=== PATIENT | female | born 1940 | race Caucasian/White ===

== ENCOUNTER 2023-04-23 09:42 | Inpatient (IN) | payer MEDICARE, OTHER ==
[~2023-04-23] VITALS: Ht 175.3 cm; Wt 75.7 kg
[2023-04-23] MEDS ORDERED: LOSA25TA27 PO (17:29)
[2023-04-23] MEDS ORDERED: CHOL200059 PO (17:29)
[2023-04-23] MEDS ORDERED: ARIP2TAB3 PO (17:29)
[2023-04-23] MEDS ORDERED: FURO-145 PO (17:29)
[2023-04-23] MEDS ORDERED: DOCU100C36 PO (17:29)
[2023-04-23] MEDS ORDERED: CALC-896 PO (17:29)
[2023-04-23] MEDS ORDERED: MULT-754 PO (17:29)
[2023-04-23] MEDS ORDERED: HAIR/SKIN/NAILS PO (17:29)
[2023-04-23] MEDS ORDERED: VENL75TA4 PO (17:29)
[2023-04-23] MEDS ORDERED: PRAV40TA3 PO (17:29)
[2023-04-23] MEDS ORDERED: APIX5TAB PO (17:29)
[2023-04-23] MEDS ORDERED: HYDR-3972 PO (17:29)
[2023-04-23] MEDS ORDERED: LEVO75TA PO (17:29)
[2023-04-23] MEDS ORDERED: METO50TA16 PO (17:29)
[2023-04-23] MEDS ORDERED: ZOLPIDEM TARTRATE 5 MG TABLET PO PRN (17:30)
[2023-04-23] MEDS ORDERED: HYDROMORPHONE 1 MG/1 ML DISP.SYRIN IV PRN (17:30)
[2023-04-23] MEDS ORDERED: Z GUARD REMEDY 4 OZ OINT TP PRN (17:30)
[2023-04-23] MEDS ORDERED: ONDANSETRON HCL/PF 4 MG/2 ML VIAL IVP PRN (17:30)
[2023-04-23] MEDS ORDERED: MAG HYDROX/AL HYDROX/SIMETH 30 ML UDC PO PRN (17:30)
[2023-04-23] MEDS: IV NS 0.9% 1,000 ML IV PRN (17:32)
[2023-04-23] MEDS ORDERED: HYDROCODONE/APAP 5/325MG TABLET PO PRN (18:00)
[2023-04-23] MEDS: ATORVASTATIN 10 MG TABLET PO SCH (18:13)
[2023-04-23] MEDS: LEVOTHYROXINE SODIUM 75 MCG TABLET PO SCH (18:14)
[2023-04-23] MEDS: ARIPIPRAZOLE 2 MG TABLET PO SCH (18:14)
[2023-04-23] MEDS: MULTIVITAMINS,THERAGRAN 1 UDTAB TABLET PO SCH (18:14)
[2023-04-23 20:00] VITALS: BP_SYST 129; BP_SYST 139; BP_DIAS 68; BP_DIAS 93; TEMP 97.7; O2SAT 95
[2023-04-24 07:24] LABS: APPEARANCE,URINE CLEAR (CLEAR); BILIRUBIN,URINE NEGATIVE (NEGATIVE); BLOOD, URINE NEGATIVE Ery/uL (NEGATIVE); COLOR,URINE YELLOW (YELLOW); KETONES,URINE NEGATIVE (NEGATIVE); LEUKOCYTE ESTERASE ,URINE TRACE (NEGATIVE); NITRITE, URINE POSITIVE (NEGATIVE); PH,URINE 6.5 (5.0-8.0); PROTEIN,URINE NEGATIVE (NEGATIVE); UGLUCOSE NEGATIVE (NEGATIVE); UROBILINOGEN,URINE 0.2 EU/dL (0.2)
[2023-04-24 07:30] LABS: BASOPHILS # (AUTO) 0.1 K/uL (0.0-0.2); BASOPHILS % (AUTO) 1.4 % (0.0-2.0); EOSINOPHILS # (AUTO) 0.5 K/uL (0.0-0.7); HEMATOCRIT 38 % (33-45); HEMOGLOBIN 12.6 g/dL (11.5-14.8); LYMPHOCYTES # (AUTO) 1.6 K/uL (0.8-4.8); LYMPHOCYTES % (AUTO) 29.5 % (20.0-44.0); MEAN CORPUSCULAR HEMOGLOBIN 31 PG (26.0-33.0); MEAN CORPUSCULAR HGB CONC 33 g/dl (31.0-36.0); MEAN CORPUSCULAR VOLUME 95 fL (82-100); MONOCYTES # (AUTO) 0.6 K/uL (0.1-1.30); MONOCYTES % (AUTO) 11.4 % (2.0-12.0); NEUTROPHILS # (AUTO) 2.6 K/uL (1.8-8.9); NEUTROPHILS % (AUTO) 48.7 % (43.0-81.0); PLATELET COUNT (AUTO) 205 K/uL (150-450); RED BLOOD CELL COUNT(AUTO) 4.05 MIL/uL (4.0-5.2); WHITE BLOOD COUNT (AUTO) 5.4 K/uL (4.3-11.0)
[2023-04-24 07:37] LABS: INR 0.97 (0.91-1.10); PARTIAL THROMBOPLASTIN TIME 29.7 SEC (24.3-34.3); PROTHROMBIN TIME 10.3 SECS (9.2-11.1)
[2023-04-24 07:49] LABS: CALCIUM, SERUM 8.7 mg/dL (8.5-10.1); CARBON DIOXIDE 27 mmol/L (21-32); CHLORIDE 104 mmol/L (98-107); CREATININE 0.7 mg/dL (0.6-1.3); GLUCOSE 89 mg/dL (74-106); MAGNESIUM 2.2 mg/dL (1.8-2.4); PHOSPHORUS 3.1 mg/dL (2.5-4.9); SODIUM SERUM 139 mmol/L (136-145); UREA NITROGEN, BLOOD 13 mg/dL (7-18)
[2023-04-24 08:00] VITALS: BP 149/77; TEMP 97.7; O2SAT 97
[2023-04-24 08:07] LABS: ADD URINE CULTURE YES; BACTERIA,URINE Many /HPF (None Seen); RBC,URINE NONE SEEN /HPF (0-2); SQUAMOUS EPITHELIAL CELL,UR Rare /HPF (None Seen)
[2023-04-24] MEDS: CALCIUM CITRATE(CITRACAL) /VITAMIN D 1 TAB TABLET PO SCH (09:00)
[2023-04-24] MEDS: VENLAFAXINE XR 150 MG CAP.SR.24H PO SCH (09:00)
[2023-04-24] MEDS: DOCUSATE SODIUM 100 MG CAPSULE PO SCH (09:00)
[2023-04-24] MEDS: LOSARTAN POTASSIUM 25 MG TABLET PO SCH (09:00)
[2023-04-24] MEDS: CHOLECALCIFEROL 1,000 UNIT TABLET (VIT D3) PO SCH (09:00)
[2023-04-24] MEDS: METOPROLOL TARTRATE 50 MG TABLET PO SCH (09:00)
[2023-04-24] MEDS ORDERED: POLYMYXIN B SULFATE 500,000 UNITS ONE (09:36)
[2023-04-24] MEDS ORDERED: LIDOCAINE 5% (PATCH) 1 EA PATCH TP ONE (09:37)
[2023-04-24] MEDS ORDERED: CELLULOSE,OXIDIZED 1 PKT EACH MC ONE (09:37)
[2023-04-24] MEDS ORDERED: ANESTHESIA TRAY IN PYXIS 1 EA TRAY MC ONE (09:37)
[2023-04-24] MEDS ORDERED: BUPIVACAINE 0.5 % PF 150 MG/30 ML VIAL ONE (09:37)
[2023-04-24] MEDS ORDERED: LIDOCAINE 1%-EPI 1:100,000 20 ML VIAL ONE (09:37)
[2023-04-24] MEDS ORDERED: CEFAZOLIN 1 GM ONE (09:37)
[2023-04-24] MEDS ORDERED: FENTANYL PF 100MCG/2ML AMPUL ONE ×2 (10:35→10:36)
[2023-04-24] MEDS ORDERED: METOPROLOL TARTRATE INJ 5 MG/5 ML AMPUL ONE (10:45)
[2023-04-24] MEDS ORDERED: KETOROLAC TROMETHAMINE INJ 30 MG/ML VIAL ONE (12:10)
[2023-04-24] MEDS ORDERED: HYDROMORPHONE 1 MG/1 ML DISP.SYRIN IV PRN (13:30)
[2023-04-24] MEDS: HYDROMORPHONE 1 MG/1 ML DISP.SYRIN IV PRN (14:20)
[2023-04-24 16:00] VITALS: BP 110/70; TEMP 97.9; O2SAT 94
[2023-04-24] MEDS: ANCEF 1 GM/50 ML D5W IV SCH (17:07)
[2023-04-24 20:00] VITALS: BP 115/78; TEMP 97.5; O2SAT 95
[2023-04-25 07:16] LABS: HEMATOCRIT 34 % (33-45); HEMOGLOBIN 11.1 g/dL (11.5-14.8); LYMPHOCYTES # (AUTO) 0.8 K/uL (0.8-4.8); LYMPHOCYTES % (AUTO) 6.6 % (20.0-44.0); MEAN CORPUSCULAR HEMOGLOBIN 31 PG (26.0-33.0); MEAN CORPUSCULAR HGB CONC 33 g/dl (31.0-36.0); MEAN CORPUSCULAR VOLUME 95 fL (82-100); MONOCYTES # (AUTO) 0.8 K/uL (0.1-1.30); MONOCYTES % (AUTO) 6.9 % (2.0-12.0); NEUTROPHILS # (AUTO) 10.4 K/uL (1.8-8.9); NEUTROPHILS % (AUTO) 86.5 % (43.0-81.0); PLATELET COUNT (AUTO) 221 K/uL (150-450); RED BLOOD CELL COUNT(AUTO) 3.56 MIL/uL (4.0-5.2); RED CELL DISTRIBUTION WIDTH 13.8 % (11.5-15.0)
[2023-04-25 07:23] LABS: CARBON DIOXIDE 23 mmol/L (21-32); CHLORIDE 107 mmol/L (98-107); CREATININE 0.8 mg/dL (0.6-1.3); GLUCOSE 129 mg/dL (74-106); POTASSIUM 4.3 mmol/L (3.5-5.1); SODIUM SERUM 139 mmol/L (136-145); UREA NITROGEN, BLOOD 19 mg/dL (7-18)
[2023-04-25 07:30] VITALS: BP 166/72; TEMP 97.7; O2SAT 96
[2023-04-25] MEDS ORDERED: CELLULOSE,OXIDIZED 1 EA PACK MC ONE (09:41)
[2023-04-25] MEDS ORDERED: BUPIVACAINE 0.5 % PF 150 MG/30 ML VIAL ONE (09:41)
[2023-04-25] MEDS ORDERED: IOHEXOL 240MG/ML 0 ML IV ONE (09:42)
[2023-04-25] MEDS ORDERED: GELATIN SPONGE,ABSORBABLE 1 EA SPONGE TP ONE (09:42)
[2023-04-25] MEDS ORDERED: LIDOCAINE 1%-EPI 1:100,000 20 ML VIAL ONE (09:43)
[2023-04-25] MEDS ORDERED: THROMBIN (BOVINE) 5,000 UNITS VIAL TP ONE ×3 (09:43→13:19)
[2023-04-25] MEDS ORDERED: CEFAZOLIN 1 GM ONE (09:44)
[2023-04-25] MEDS ORDERED: LIDOCAINE 5% (PATCH) 1 EA PATCH TP ONE ×2 (09:44→11:32)
[2023-04-25] MEDS ORDERED: HEMOSTATIC MATRIX 8 ML 1 EACH PAD MC ONE ×2 (09:45→13:22)
[2023-04-25] MEDS ORDERED: GELATIN SPONGE,ABSORBABLE 1 SPONGE SPONGE TP ONE ×3 (10:03→10:04)
[2023-04-25] MEDS ORDERED: dexaMETHasone SOD PHOSPHATE 1 ML ONE (10:20)
[2023-04-25] MEDS ORDERED: FENTANYL PF 250MCG/5ML AMPUL ONE (10:35)
[2023-04-25] MEDS ORDERED: POLYMYXIN B SULFATE 500,000 UNITS ONE (11:33)
[2023-04-25] MEDS ORDERED: HYDROMORPHONE 1 MG/1 ML DISP.SYRIN ONE (14:52)
[2023-04-25 15:09] LABS: EOSINOPHILS % (AUTO) 0.1 % (0.0-6.0); HEMATOCRIT 29 % (33-45); HEMOGLOBIN 9.1 g/dL (11.5-14.8); LYMPHOCYTES # (AUTO) 1.3 K/uL (0.8-4.8); LYMPHOCYTES % (AUTO) 10.6 % (20.0-44.0); MEAN CORPUSCULAR HEMOGLOBIN 31 PG (26.0-33.0); MEAN CORPUSCULAR HGB CONC 31 g/dl (31.0-36.0); MEAN CORPUSCULAR VOLUME 98 fL (82-100); MONOCYTES # (AUTO) 1.2 K/uL (0.1-1.30); MONOCYTES % (AUTO) 9.2 % (2.0-12.0); NEUTROPHILS % (AUTO) 80.1 % (43.0-81.0); PLATELET COUNT (AUTO) 213 K/uL (150-450); RED BLOOD CELL COUNT(AUTO) 2.96 MIL/uL (4.0-5.2); RED CELL DISTRIBUTION WIDTH 14.7 % (11.5-15.0); WHITE BLOOD COUNT (AUTO) 12.5 K/uL (4.3-11.0)
[2023-04-25 15:22] LABS: INR 1.02 (0.91-1.10); PROTHROMBIN TIME 10.8 SECS (9.2-11.1)
[2023-04-25] MEDS ORDERED: ONDANSETRON HCL/PF 4 MG/2 ML VIAL IV PRN (15:30)
[2023-04-25 15:40] LABS: ALANINE AMINOTRANSFERASE 20 U/L (12-78); ALBUMIN 2.5 g/dL (3.4-5.0); ALKALINE PHOSPHATASE 61 U/L (46-116); ASPARTATE AMINOTRANSFERASE 21 U/L (15-37); BILIRUBIN,TOTAL 0.2 mg/dL (0.2-1.0); CALCIUM, SERUM 8.1 mg/dL (8.5-10.1); CARBON DIOXIDE 19 mmol/L (21-32); CHLORIDE 110 mmol/L (98-107); CREATININE 0.7 mg/dL (0.6-1.3); GLUCOSE 135 mg/dL (74-106); POTASSIUM 3.7 mmol/L (3.5-5.1); SODIUM SERUM 140 mmol/L (136-145); TOTAL PROTEIN, SERUM 4.8 g/dL (6.4-8.2); UREA NITROGEN, BLOOD 16 mg/dL (7-18)
[2023-04-25 16:00] VITALS: BP_SYST 102; BP_SYST 126; BP_DIAS 53; BP_DIAS 80; TEMP 97.5; TEMP 98.2; O2SAT 95; O2SAT 99
[2023-04-25 16:09] LABS: PARTIAL THROMBOPLASTIN TIME 23.1 SEC (24.3-34.3)
[2023-04-25] MEDS: VANCOMYCIN 1 GM in IV D5W 250ml IV SCH (17:09)
[2023-04-25] MEDS: IV NS 0.9% 1,000 ML BAG IV ONE (17:23)
[2023-04-25] MEDS: PIPERACILLIN /TAZOBACTAM 3.375 G in IV D5W 100 ML IV SCH (18:27)
[2023-04-25 20:00] VITALS: BP 103/60; TEMP 97.9; O2SAT 95
[2023-04-25] MEDS: HYDROMORPHONE 1 MG/1 ML DISP.SYRIN IV PRN (21:29)
[2023-04-25] MEDS: METOCLOPRAMIDE HCL 10 MG/2 ML VIAL IV PRN (22:28)
[2023-04-26] VITALS (8 sets, daily range): BP systolic 98–123; BP diastolic 54–63; TEMP 98.1–98.9; O2SAT 92–96
[2023-04-26] MEDS: HYDROMORPHONE 1 MG/1 ML DISP.SYRIN IV PRN (00:26)
[2023-04-26] MEDS: IV NS 0.9% 1,000 ML IV PRN (00:34)
[2023-04-26 08:16] LABS: ALBUMIN 2.3 g/dL (3.4-5.0); BILIRUBIN,TOTAL 0.3 mg/dL (0.2-1.0); CALCIUM, SERUM 7.9 mg/dL (8.5-10.1); CREATININE 0.7 mg/dL (0.6-1.3); PHOSPHORUS 2.4 mg/dL (2.5-4.9); POTASSIUM 3.7 mmol/L (3.5-5.1); TOTAL PROTEIN, SERUM 4.5 g/dL (6.4-8.2)
[2023-04-26 09:41] LABS: BASOPHILS % (AUTO) 0.1 % (0.0-2.0); EOSINOPHILS % (AUTO) 0.4 % (0.0-6.0); HEMATOCRIT 21 % (33-45); LYMPHOCYTES # (AUTO) 1.3 K/uL (0.8-4.8); LYMPHOCYTES % (AUTO) 15.3 % (20.0-44.0); MEAN CORPUSCULAR HEMOGLOBIN 31 PG (26.0-33.0); MEAN CORPUSCULAR HGB CONC 33 g/dl (31.0-36.0); MEAN CORPUSCULAR VOLUME 96 fL (82-100); MONOCYTES # (AUTO) 1.1 K/uL (0.1-1.30); MONOCYTES % (AUTO) 13.4 % (2.0-12.0); NEUTROPHILS # (AUTO) 5.8 K/uL (1.8-8.9); NEUTROPHILS % (AUTO) 70.8 % (43.0-81.0); PLATELET COUNT (AUTO) 188 K/uL (150-450); RED BLOOD CELL COUNT(AUTO) 2.24 MIL/uL (4.0-5.2); RED CELL DISTRIBUTION WIDTH 14.4 % (11.5-15.0); WHITE BLOOD COUNT (AUTO) 8.2 K/uL (4.3-11.0)
[2023-04-26] MEDS: NEUTRA PHOS 1 POWD.PACKET PO ONE (16:05)
[2023-04-26 17:28] LABS: HEMOGLOBIN 7.9 g/dL (11.5-14.8)
[2023-04-26] MEDS: HYDROCODONE/APAP 10/325MG TABLET PO PRN (20:20)
[2023-04-26] MEDS: HYDROMORPHONE INJ 2 MG/ML DISP.SYRIN IV PRN (23:00)
[2023-04-27] VITALS (10 sets, daily range): BP systolic 102–131; BP diastolic 50–67; TEMP 98.4–99.1; O2SAT 99
[2023-04-27 07:32] LABS: BASOPHILS % (AUTO) 0.4 % (0.0-2.0); EOSINOPHILS # (AUTO) 0.1 K/uL (0.0-0.7); EOSINOPHILS % (AUTO) 1.4 % (0.0-6.0); HEMATOCRIT 27 % (33-45); HEMOGLOBIN 8.9 g/dL (11.5-14.8); LYMPHOCYTES # (AUTO) 1.3 K/uL (0.8-4.8); LYMPHOCYTES % (AUTO) 17.5 % (20.0-44.0); MEAN CORPUSCULAR HEMOGLOBIN 31 PG (26.0-33.0); MEAN CORPUSCULAR HGB CONC 33 g/dl (31.0-36.0); MEAN CORPUSCULAR VOLUME 95 fL (82-100); NEUTROPHILS # (AUTO) 4.8 K/uL (1.8-8.9); NEUTROPHILS % (AUTO) 66.7 % (43.0-81.0); PLATELET COUNT (AUTO) 145 K/uL (150-450); RED BLOOD CELL COUNT(AUTO) 2.83 MIL/uL (4.0-5.2); RED CELL DISTRIBUTION WIDTH 14.5 % (11.5-15.0); WHITE BLOOD COUNT (AUTO) 7.2 K/uL (4.3-11.0)
[2023-04-27 08:32] LABS: ALANINE AMINOTRANSFERASE 21 U/L (12-78); ALBUMIN 2.2 g/dL (3.4-5.0); ALKALINE PHOSPHATASE 58 U/L (46-116); ASPARTATE AMINOTRANSFERASE 22 U/L (15-37); CALCIUM, SERUM 8.2 mg/dL (8.5-10.1); CARBON DIOXIDE 24 mmol/L (21-32); CHLORIDE 103 mmol/L (98-107); CREATININE 0.5 mg/dL (0.6-1.3); GLUCOSE 129 mg/dL (74-106); MAGNESIUM 2.1 mg/dL (1.8-2.4); PHOSPHORUS 2.1 mg/dL (2.5-4.9); POTASSIUM 3.5 mmol/L (3.5-5.1); SODIUM SERUM 134 mmol/L (136-145); TOTAL PROTEIN, SERUM 4.9 g/dL (6.4-8.2); UREA NITROGEN, BLOOD 8 mg/dL (7-18)
[2023-04-27] MEDS: APIXABAN 5 MG TABLET PO SCH (09:34)
[2023-04-27] MEDS: NEUTRA PHOS 1 POWD.PACKET PO ONE (17:08)
[2023-04-28] VITALS (9 sets, daily range): BP systolic 105–147; BP diastolic 49–64; TEMP 98.4–99.7; O2SAT 95–98
[2023-04-28] MEDS: oxyCODONE/APAP (5/325 MG) 1 UDTAB TABLET PO PRN (01:14)
[2023-04-28] MEDS: LIDOCAINE 5% (PATCH) 1 EA PATCH TP SCH (10:05)
[2023-04-28 10:18] LABS: CALCIUM, SERUM 7.9 mg/dL (8.5-10.1); CREATININE 0.6 mg/dL (0.6-1.3); POTASSIUM 3.3 mmol/L (3.5-5.1)
[2023-04-28 10:55] LABS: BASOPHILS % (AUTO) 0.2 % (0.0-2.0); EOSINOPHILS # (AUTO) 0.2 K/uL (0.0-0.7); EOSINOPHILS % (AUTO) 2.7 % (0.0-6.0); HEMATOCRIT 25 % (33-45); HEMOGLOBIN 8.1 g/dL (11.5-14.8); LYMPHOCYTES # (AUTO) 1.1 K/uL (0.8-4.8); LYMPHOCYTES % (AUTO) 13.8 % (20.0-44.0); MEAN CORPUSCULAR HEMOGLOBIN 31 PG (26.0-33.0); MEAN CORPUSCULAR HGB CONC 33 g/dl (31.0-36.0); MEAN CORPUSCULAR VOLUME 95 fL (82-100); MONOCYTES # (AUTO) 0.9 K/uL (0.1-1.30); MONOCYTES % (AUTO) 11.4 % (2.0-12.0); NEUTROPHILS # (AUTO) 5.8 K/uL (1.8-8.9); NEUTROPHILS % (AUTO) 71.9 % (43.0-81.0); PLATELET COUNT (AUTO) 158 K/uL (150-450); RED CELL DISTRIBUTION WIDTH 14.1 % (11.5-15.0); WHITE BLOOD COUNT (AUTO) 8.1 K/uL (4.3-11.0)
[2023-04-28] MEDS: POTASSIUM CHLORIDE 20 MEQ TAB.PRT.SR PO ONE (12:17)
[2023-04-29 05:21] VITALS: O2SAT 98
[2023-04-29] MEDS: MAGNESIUM HYDROXIDE 30 ML UDC PO PRN (05:31)
[2023-04-29 06:29] LABS: BASOPHILS % (AUTO) 0.5 % (0.0-2.0); EOSINOPHILS # (AUTO) 0.2 K/uL (0.0-0.7); EOSINOPHILS % (AUTO) 2.9 % (0.0-6.0); HEMATOCRIT 28 % (33-45); HEMOGLOBIN 9.4 g/dL (11.5-14.8); LYMPHOCYTES # (AUTO) 0.9 K/uL (0.8-4.8); LYMPHOCYTES % (AUTO) 11.4 % (20.0-44.0); MEAN CORPUSCULAR HEMOGLOBIN 31 PG (26.0-33.0); MEAN CORPUSCULAR HGB CONC 34 g/dl (31.0-36.0); MEAN CORPUSCULAR VOLUME 93 fL (82-100); MONOCYTES % (AUTO) 12.5 % (2.0-12.0); NEUTROPHILS # (AUTO) 5.9 K/uL (1.8-8.9); NEUTROPHILS % (AUTO) 72.7 % (43.0-81.0); PLATELET COUNT (AUTO) 192 K/uL (150-450); RED CELL DISTRIBUTION WIDTH 14.2 % (11.5-15.0); WHITE BLOOD COUNT (AUTO) 8.1 K/uL (4.3-11.0)
[2023-04-29 06:42] LABS: ALANINE AMINOTRANSFERASE 19 U/L (12-78); ALBUMIN 1.8 g/dL (3.4-5.0); ALKALINE PHOSPHATASE 66 U/L (46-116); ASPARTATE AMINOTRANSFERASE 19 U/L (15-37); BILIRUBIN,TOTAL 0.7 mg/dL (0.2-1.0); CALCIUM, SERUM 8.1 mg/dL (8.5-10.1); CARBON DIOXIDE 25 mmol/L (21-32); CHLORIDE 102 mmol/L (98-107); CREATININE 0.5 mg/dL (0.6-1.3); GLUCOSE 95 mg/dL (74-106); PHOSPHORUS 2.2 mg/dL (2.5-4.9); POTASSIUM 3.7 mmol/L (3.5-5.1); SODIUM SERUM 133 mmol/L (136-145); TOTAL PROTEIN, SERUM 4.9 g/dL (6.4-8.2); UREA NITROGEN, BLOOD 10 mg/dL (7-18)
[2023-04-29 07:00] VITALS: BP 160/69; TEMP 99.5; O2SAT 96
[2023-04-29 08:00] VITALS: O2SAT 94
[2023-04-29] MEDS: ACETAMINOPHEN 325 MG TABLET PO PRN (13:12)
[2023-04-29 16:17] VITALS: BP 138/65; TEMP 99.1; O2SAT 94
[2023-04-29] MEDS: NEUTRA PHOS 1 POWD.PACKET PO ONE (16:48)
[2023-04-29 20:00] VITALS: BP 132/76; TEMP 98.8; O2SAT 95
[2023-04-30 03:30] VITALS: O2SAT 96
[2023-04-30 07:04] LABS: BASOPHILS # (AUTO) 0.1 K/uL (0.0-0.2); BASOPHILS % (AUTO) 0.7 % (0.0-2.0); EOSINOPHILS # (AUTO) 0.3 K/uL (0.0-0.7); EOSINOPHILS % (AUTO) 4.5 % (0.0-6.0); HEMATOCRIT 29 % (33-45); HEMOGLOBIN 9.9 g/dL (11.5-14.8); LYMPHOCYTES # (AUTO) 1.1 K/uL (0.8-4.8); LYMPHOCYTES % (AUTO) 14.9 % (20.0-44.0); MEAN CORPUSCULAR HEMOGLOBIN 32 PG (26.0-33.0); MEAN CORPUSCULAR HGB CONC 35 g/dl (31.0-36.0); MEAN CORPUSCULAR VOLUME 93 fL (82-100); MONOCYTES # (AUTO) 0.9 K/uL (0.1-1.30); MONOCYTES % (AUTO) 11.8 % (2.0-12.0); NEUTROPHILS % (AUTO) 68.1 % (43.0-81.0); PLATELET COUNT (AUTO) 237 K/uL (150-450); RED BLOOD CELL COUNT(AUTO) 3.08 MIL/uL (4.0-5.2); RED CELL DISTRIBUTION WIDTH 14.5 % (11.5-15.0); WHITE BLOOD COUNT (AUTO) 7.4 K/uL (4.3-11.0)
[2023-04-30 07:25] LABS: ALANINE AMINOTRANSFERASE 24 U/L (12-78); ALBUMIN 1.7 g/dL (3.4-5.0); ALKALINE PHOSPHATASE 71 U/L (46-116); ASPARTATE AMINOTRANSFERASE 24 U/L (15-37); BILIRUBIN,TOTAL 0.7 mg/dL (0.2-1.0); CALCIUM, SERUM 8.1 mg/dL (8.5-10.1); CARBON DIOXIDE 28 mmol/L (21-32); CHLORIDE 100 mmol/L (98-107); CREATININE 0.5 mg/dL (0.6-1.3); GLUCOSE 91 mg/dL (74-106); MAGNESIUM 2.2 mg/dL (1.8-2.4); PHOSPHORUS 2.3 mg/dL (2.5-4.9); POTASSIUM 3.4 mmol/L (3.5-5.1); SODIUM SERUM 133 mmol/L (136-145); TOTAL PROTEIN, SERUM 4.9 g/dL (6.4-8.2); UREA NITROGEN, BLOOD 9 mg/dL (7-18)
[2023-04-30 08:00] VITALS: BP 132/64; TEMP 99.1; O2SAT 97
[2023-04-30 08:10] VITALS: O2SAT 97
[2023-04-30] MEDS: POTASSIUM CHLORIDE 20 MEQ POWDER PACKET PO ONE (09:41)
[2023-04-30] MEDS: NEUTRA PHOS 1 POWD.PACKET PO ONE (11:05)
[2023-04-30 16:00] VITALS: BP 126/76; TEMP 98.4; O2SAT 96
[2023-04-30 20:00] VITALS: BP 140/61; TEMP 99.5; O2SAT 99
[2023-04-30 20:55] VITALS: O2SAT 97
[2023-05-01 08:32] VITALS: BP 155/69
[2023-05-01] MEDS ORDERED: PROSOURCE / PROSTAT (PYXIS) 30 ML UDC PO SCH (13:00)
== END 2023-05-01 10:21 | disposition home or self-care (01) | DRG 460 ==
LOC: MED 14:59
PROVIDERS: ADMIT Nurse Practitioner Acute Care
PROC: 0SG807Z Fusion of Left Sacroiliac Joint with Autologous Tissue Substitute, Open Approach (ICD-10-PCS; principal; 2023-04-24)
PROC: BR1DYZZ Fluoroscopy of Sacroiliac Joints using Other Contrast (ICD-10-PCS; 2023-04-24)
PROC: 00QT0ZZ Repair Spinal Meninges, Open Approach (ICD-10-PCS; 2023-04-25)
PROC: 01NB0ZZ Release Lumbar Nerve, Open Approach (ICD-10-PCS; 2023-04-25)
PROC: 01NR0ZZ Release Sacral Nerve, Open Approach (ICD-10-PCS; 2023-04-25)
PROC: 0Q800ZZ Division of Lumbar Vertebra, Open Approach (ICD-10-PCS; 2023-04-25)
PROC: 00UT07Z Supplement Spinal Meninges with Autologous Tissue Substitute, Open Approach (ICD-10-PCS; 2023-04-25)
PROC: 0Q8 Lower Bones, Division (ICD-10-PCS; 2023-04-25)
PROC: 30233N1 Transfusion of Nonautologous Red Blood Cells into Peripheral Vein, Percutaneous Approach (ICD-10-PCS; 2023-04-26)
DX: M53.3 Sacrococcygeal disorders, not elsewhere classified (principal); I48.20 Chronic atrial fibrillation, unspecified; M96.0 Pseudarthrosis after fusion or arthrodesis; G97.41 Accidental puncture or laceration of dura during a procedure; I10 Essential (primary) hypertension; M21.379 Foot drop, unspecified foot; E03.9 Hypothyroidism, unspecified; E78.5 Hyperlipidemia, unspecified; Z79.01 Long term (current) use of anticoagulants; M21.372 Foot drop, left foot; M19.90 Unspecified osteoarthritis, unspecified site; R26.89 Other abnormalities of gait and mobility; M47.27 Other spondylosis with radiculopathy, lumbosacral region; M48.07 Spinal stenosis, lumbosacral region; M51.17 Intervertebral disc disorders with radiculopathy, lumbosacral region; Y83.8 Other surgical procedures as the cause of abnormal reaction of the patient, or of later complication, without mention of misadventure at the time of the procedure; Y81.8 Miscellaneous general- and plastic-surgery devices associated with adverse incidents, not elsewhere classified; Y92.009 Unspecified place in unspecified non-institutional (private) residence as the place of occurrence of the external cause; M77.8 Other enthesopathies, not elsewhere classified; Y92.234 Operating room of hospital as the place of occurrence of the external cause
CPT/HCPCS: 36415; 71045-TC; 72020-TC; 72202-TC; 80048-TC; 80053-TC; 81001; 83735-TC; 84100-TC; 85025-TC; 85027-TC; 85610-TC; 85730-TC; 86850-TC; 87081-TC; 87086-TC; 94760-TC; 94761-TC; 94762-TC; 94799-TC; 97110-TC; 97112-TC; 97116-TC; 97530-TC; A4223; A6253; C1713; C1769; G0378; J0330; J0690; J1100; J1170; J1885; J2405; J2543; J2704; J2765; J3010; J3370; J3490; J7030; J7040; J7050; J7060; P9016; Q9966